=== PATIENT | male | born 1945 | race Caucasian/White ===

== ENCOUNTER → 2017-08-27 | Outpatient (CLI) | payer OTHER | LOC: CIMAGING 12:16 | PROVIDERS: ATTEND Family Medicine | DX: M50.322 Other cervical disc degeneration at C5-C6 level (principal); M53.82 Other specified dorsopathies, cervical region; I65.23 Occlusion and stenosis of bilateral carotid arteries | CPT/HCPCS: 72040-PO ==

== ENCOUNTER → 2017-10-16 | Outpatient (CLI) | payer OTHER | LOC: FIMAGING 08:12 | PROVIDERS: ATTEND Family Medicine | DX: M50.321 Other cervical disc degeneration at C4-C5 level (principal); M50.322 Other cervical disc degeneration at C5-C6 level; M50.323 Other cervical disc degeneration at C6-C7 level; M50.33 Other cervical disc degeneration, cervicothoracic region; M12.88 Other specific arthropathies, not elsewhere classified, other specified site; M48.02 Spinal stenosis, cervical region; M99.71 Connective tissue and disc stenosis of intervertebral foramina of cervical region; G95.20 Unspecified cord compression ==

== ENCOUNTER 2018-04-16 12:10 | Emergency (ER) | payer OTHER ==
[2018-04-16] MEDS ORDERED: OXYCODONE/APAP 5/325 TAB PO ONE (13:26)
--- NOTE | 2018-04-16 13:26 | EDPHY ---
H & P Stated Complaint: neck/L shoulder pain Time Seen by Provider: 04/16/18 13:11 HPI/ROS: CHIEF COMPLAINT: Neck pain radiating to left arm HISTORY OF PRESENT ILLNESS: 72-year-old male with a history of cervical disc herniation presents with severe neck pain radiating to the left arm. He has had ongoing pain in the neck and has received steroid injections at [facility]. This morning he was reaching up to hang up some clothes when he had sudden onset of severe neck pain 80 radiating to the left arm. The pain is constant and somewhat alleviated by flexing his neck forward. Unrelieved with ibuprofen 400 mg. He made an appointment at [facility] for tomorrow. No weakness or numbness. REVIEW OF SYSTEMS: complete 10 point ROS reviewed and is negative except for the noted elements in the HPI - Personal History Current Tetanus/Diphtheria Vaccine: Yes Current Tetanus Diphtheria and Acellular Pertussis (TDAP): Yes - Medical/Surgical History Hx Asthma: No Hx Chronic Respiratory Disease: No Hx Diabetes: No Hx Cardiac Disease: No Hx Renal Disease: No Hx Cirrhosis: No Hx Alcoholism: No Hx HIV/AIDS: No Hx Splenectomy or Spleen Trauma: No Other PMH: parkinsons, cervical spine problems, BPH, - Social History Smoking Status: Never smoked - Physical Exam Exam: General Appearance: Alert, pleasant, appears in pain Eyes: Pupils equal and round, no conjunctival pallor ENT, Mouth: Mucous membranes moist Neck: Normal inspection, no tenderness Respiratory: Lungs are clear to auscultation Cardiovascular: Regular rate and rhythm Gastrointestinal: Abdomen is soft and nontender Neurological: A&O, slab grinder strength 5/5 bilaterally, sensory intact to light touch , normal gait Skin: Warm and dry, no rash Extremities: No tenderness over the left upper extremity, range of motion without pain Psychiatric: Mood and affect normal Constitutional: Initial Vital Signs Temperature (C) 36.5 C 04/16/18 12:18 Heart Rate 76 04/16/18 12:18 Respiratory Rate 16 04/16/18 12:18 Blood Pressure 152/79 H 04/16/18 12:18 O2 Sat (%) 94 04/16/18 12:18 O2 Delivery Mode Room Air Allergies/Adverse Reactions: No Known Allergies Allergy (Unverified 04/16/18 12:16) Home Medications: Medication Instructions Recorded Atenolol 04/16/18 Carbidopa-Levo 10-100 mg Odt 04/16/18 Escitalopram Oxalate 04/16/18 Flomax 04/16/18 Ondansetron Odt [Zofran Odt 4 mg 4 mg PO Q4 PRN #6 tab 04/16/18 (*)] Sodium Chloride 04/16/18 methylPREDNISolone [Medrol Dose 1 each PO AD #1 ea 04/16/18 Chalino] oxyCODONE/APAP 5/325 [Percocet 1 tab PO Q4 PRN #15 tab 04/16/18 5/325 (*)] Medical Decision Making ED Course/Re-evaluation: This pt presents with cervical radiculopathy. Pt appears in pain, IV meds offered, pt declines. Percocet given in ED. Prescriptions for Medrol dose chalino and percocet. f/u with [facility] tomorrow. - Data Points Medications Given: Discontinued Medications Oxycodone/Acetaminophen (Percocet 5/325) 1 tab PO EDNOW ONE Stop: 04/16/18 13:27 Last Admin: 04/16/18 13:52 Dose: 1 tab Departure - Departure Disposition: Home, Routine, Self-Care Clinical Impression: Cervical radiculopathy Condition: Good Instructions: Cervical Radiculopathy (ED) Additional Instructions: Return for worsening pain, weakness, any concerns. Referrals: Howie Chapman MD [Primary Care Provider] - As per Instructions Prescriptions: methylPREDNISolone [Medrol Dose Chalino] 1 each PO AD #1 ea Ondansetron Odt [Zofran Odt 4 mg (*)] 4 mg PO Q4 PRN #6 tab PRN Reason: Nausea oxyCODONE/APAP 5/325 [Percocet 5/325 (*)] 1 tab PO Q4 PRN #15 tab PRN Reason: pain
[2018-04-16 14:03] VITALS: BP 162/73
== END 2018-04-16 13:56 | disposition home or self-care (01) ==
DX: M54.12 Radiculopathy, cervical region (principal); G20 Parkinson's disease; N40.0 Benign prostatic hyperplasia without lower urinary tract symptoms